=== PATIENT | female | born 1980 | race Caucasian/White ===

== ENCOUNTER 2023-12-11 12:17 | Outpatient (CLI) | payer BC, SELFPAY ==
--- NOTE | ~2023-12-11 | US_ITS ---
EXAMINATION: US thyroid DATE: 12/11/2023 12:45 INDICATION: Hypothyroidism. TECHNIQUE: Multiple ultrasound images of the thyroid were obtained. COMPARISON: None. FINDINGS: The right thyroid lobe measures 5.7 x 2.3 x 2.6 cm. The left thyroid lobe measures 5.6 x 2.5 x 2.6 c m. In the right thyroid lobe, there is a 10 mm mixed cystic and solid, isoechoic, wider than tall no dule with smooth margin without echogenic foci (TI-RADS TR2). In the right thyroid lobe, there is a 1 0 mm mixed cystic and solid, isoechoic, wider than tall nodule with ill-defined margin without echoge tiffanie foci (TR2). There are coarse calcifications in the thyroid. In the left thyroid lobe, there is a 3.1 cm solid, isoechoic, taller than wide nodule with ill-defined margin without echogenic foci (TR4) . IMPRESSION: 1. Multinodular goiter. Ultrasound-guided fine needle aspiration of the 3.1 cm left thyroid nodule is recommended. Reviewed, dictated and finalized at location E.
== END 2023-12-11 12:18 | disposition home or self-care (01) ==
LOC: CHSIMG 12:21
PROVIDERS: PCP Nurse Practitioner; Visit Provider Nurse Practitioner
DX: E03.9 Hypothyroidism, unspecified (principal); E04.2 Nontoxic multinodular goiter
CPT/HCPCS: 76536

== ENCOUNTER 2023-12-18 16:03 | Outpatient (CLI) | payer BC, SELFPAY ==
--- NOTE | ~2023-12-18 | XR_ITS ---
IMPRESSION: 1. Mild polyarticular osteoarthritis. EXAMINATION: XR hand LT min 3V DATE: 12/18/2023 16:19 INDICATION: Left hand joint pain. TECHNIQUE: 3 views of left hand were obtained. COMPARISON: None. FINDINGS: Bone alignment is normal. No fracture. There is mild osteoarthritis of first and second met acarpophalangeal joints and second-fifth distal interphalangeal joints. IMPRESSION: 1. Mild polyarticular osteoarthritis. Reviewed, dictated and finalized at location E.
--- NOTE | ~2023-12-18 | XR_ITS ---
EXAMINATION: XR hand RT min 3V DATE: 12/18/2023 16:20 INDICATION: Right hand joint pain. TECHNIQUE: 3 views of right hand were obtained. COMPARISON: None. FINDINGS: Bone alignment is normal. No fracture. There is mild osteoarthritis of first carpometacarpa l joint, second and third metacarpophalangeal joints, and second and fifth distal interphalangeal karli nts. IMPRESSION: 1. Mild polyarticular osteoarthritis. Reviewed, dictated and finalized at location E.
== END 2023-12-18 16:04 | disposition home or self-care (01) ==
LOC: CHSIMG 16:06
PROVIDERS: PCP Nurse Practitioner; Visit Provider Nurse Practitioner
DX: M25.50 Pain in unspecified joint (principal); M19.042 Primary osteoarthritis, left hand; M19.041 Primary osteoarthritis, right hand
CPT/HCPCS: 73130